=== PATIENT | female | born 1965 | race Two or more races ===

== ENCOUNTER 2024-04-01 14:58 | Emergency (ER) | payer OTHER ==
[~2024-04-01] VITALS: Ht 157.5 cm; Wt 61.7 kg
[2024-04-01] MEDS ORDERED: SYNTHROID50 MCG (15:29)
[2024-04-01] MEDS ORDERED: TRAM1TAB98 PO (19:04)
== END 2024-04-01 19:16 | disposition home or self-care (01) ==
LOC: ER 14:59
DX: S92.424A Nondisplaced fracture of distal phalanx of right great toe, initial encounter for closed fracture (principal); S93.401A Sprain of unspecified ligament of right ankle, initial encounter; S93.402A Sprain of unspecified ligament of left ankle, initial encounter; W10.8XXA Fall (on) (from) other stairs and steps, initial encounter; Y93.89 Activity, other specified; Y92.89 Other specified places as the place of occurrence of the external cause; Y99.9 Unspecified external cause status; E03.9 Hypothyroidism, unspecified; Z88.6 Allergy status to analgesic agent; Z88.0 Allergy status to penicillin